=== PATIENT | male | born 1995 | race African-American/Black ===

== ENCOUNTER 2018-12-15 12:40 | Emergency (ER) | payer OTHER ==
[~2018-12-15] VITALS: Ht 175.3 cm; Wt 71.7 kg
[~2018-12-15 12:40] MED LIST: KEPPRA 500 MG500 M1 PO; MUCINEX D TABL1 EAC1 PO; NAPROSYN500 MG PO; TESSALON PERLE100 MG PO
[2018-12-15] MEDS ORDERED: BUTALB-APAP-CA1 EACH PO (16:14)
[2018-12-15 16:38] VITALS: BP 134/92
--- NOTE | 2018-12-16 16:01 | EKG ---
[place] [address] [facility] [place] [address] ELECTROCARDIOGRAM REPORT Name: CALLUM TO Room #: [facility]#: [id number] ������������������ Admission: 12/15/18 ������������������ Attend Phys: Discharge: 12/15/18 ������������������ Date of : [birth year] Report #: [id number] ����������������������������������������������������������������� [id number] THIS REPORT FOR: //name// [facility] ED Test Date: 2018-12-15 Test Time: 12:53:47 Pat Name: CALLUM TO Department: Room: Gender: M Meat Loiner: [place] : 1995 Requested By: Petra Delgado Order Number: [id number] MD: Bryce Wu Measurements Intervals [place] Rate: 61 P: 36 [place]: 154 QRS: 122 QRSD: 83 T: 4 QT: 367 QTc: 370 Interpretive Statements Sinus rhythm Right axis deviation Borderline T wave abnormalities Borderline ST elevation, anterior leads No previous ECG available for comparison Electronically Signed On 12-16-2018 16:01:25 CDT by Bryce Wu [email or web address] ��������������������������������������������� <ELECTRONICALLY SIGNED> ���������������������������������������� By: Bryce Wu MD, [facility] ��������������������������������������������� 12/16/18 1601 1253 1253 Bryce Wu MD, FACC /EPI
== END 2018-12-15 16:21 | disposition home or self-care (01) ==
LOC: ER 12:40
DX: R51 Headache (principal); R05 Cough; R11.2 Nausea with vomiting, unspecified; R42 Dizziness and giddiness; F17.210 Nicotine dependence, cigarettes, uncomplicated

== ENCOUNTER 2020-06-25 14:58 | Inpatient (IN) | payer OTHER ==
[~2020-06-25] VITALS: Ht 170.2 cm; Wt 63.0 kg
--- NOTE | ~2020-06-25 | HC ---
[facility] [place] [address] CONSULTATION Name: CALLUM TO Room #: 202-P ADM IN M.R.#: [id number] Admission: 06/25/20 Attend Phys: Azam Allen MD Discharge: Date of : [birth year] Report #: [id number] THIS REPORT FOR: cc: FAM - No family physician/PCP FAM - No family physician/PCP Mehdi Yeung MD ~ DATE OF SERVICE: 06/25/2020 HISTORY OF PRESENT ILLNESS: This is a 25-year-old male patient who was evaluated by me for a seizure. This patient apparently has a seizure disorder. I cannot get any history from him because he is pretty much out. I talked to the Emergency Room physician. The patient's family is left, and I can talk to them, and I will try to get hold of her. The patient apparently has a known seizure disorder. He is on Depakote. He stopped taking Depakote about a month ago, and he came in with what look like pretty severe multiple seizures. They gave him a lot of Ativan, and subsequently, they gave him 1000 mg of Keppra. He has not had any further seizure. He was agitated first, but now he is pretty much out. REVIEW OF SYSTEMS: Unavailable in this patient except as I talked to the Emergency Room physician. There is some record of acute kidney injuries. This patient's electrolytes are significantly abnormal. He has a pretty significant lactic acidosis. He does have a high CPK. His white count is 24.8, and I suspect that is demargination because his temperature is normal. I talked to Emergency Room physician, they had recommended a spinal tap, but the family refused that and the patient is unable to participate in any discussion, so spinal tap was not done. He was put on some antibiotics until ID can see him and they will decide if they need to continue that or not. That is all the review of system I can get. PAST MEDICAL HISTORY: Positive for seizure and noncompliance with Keppra. FAMILY HISTORY: Unavailable. SOCIAL HISTORY: Unavailable. PHYSICAL EXAMINATION: Very limited. He is basically lying there. He is not responsive. His breathing looks intact. I cannot tell whether he can move both sides. He has no reflexes. He has no meningeal sign. Cardiac and respiratory examinations appear noncontributory. EEG was reviewed and that does not show any active seizure activity. IMPRESSION: Possible breakthrough seizures secondary to noncompliance. We will try to reach the family to get some more history. In the meantime, [place] [address] CONSULTATION Name: CALLUM TO Micaela Room #: 202-P [facility] IN M.R.#: [id number] Admission: 06/25/20 Attend Phys: Azam Allen MD Discharge: Date of : [birth year] Report #: [id number] Thank you very much for this referral, and please feel free to contact me if you have any questions. By: [id number] Mehdi Yeung MD /dale
--- NOTE | ~2020-06-25 | EEG ---
[facility] [place] [address] ELECTROENCEPHALOGRAM Name: CALLUM TO Room #: 202-P ADM IN M.R.#: [id number] Admission: 06/25/20 Attend Phys: Azam Allen MD Discharge: Date of : [birth year] Report #: [id number] THIS REPORT FOR: //name// DATE OF SERVICE: 06/25/2020 This patient is being evaluated for multiple seizures. EEG was done by placing the electrode by standard 10-20 system of electrode placement. Both referential and sequential montages were used for recording. Background activity in this patient's EEG is suppressed. It does go up to about 6-7 Hz, but lot of time it is very low voltage, somewhere around 15 microvolts. Photic stimulation is unremarkable. The EEG was monotonous and did not change much. No active epileptiform activity was noticed. IMPRESSION: This patient's EEG does not demonstrate any clear-cut epileptiform activity in spite of the patient's multiple seizures he had. EEG can be normal in a patient with a seizure disorder. By: 99 10 Mehdi Yeung MD /nt
[~2020-06-25 14:58] MED LIST changes: +BUTALB-APAP-CA1 EACH PO; +KEPPRA1000 MG PO
[2020-06-25 15:01] VITALS: BP 172/91
[2020-06-25 15:56] LABS: URINE BILIRUBIN NEGATIVE (Negative); URINE BLOOD 2+ (Negative); URINE CLARITY CLEAR; URINE COLOR YELLOW; URINE GLUCOSE-RANDOM* TRACE (Negative); URINE KETONES NEGATIVE (Negative); URINE LEUKOCYTES-REFLEX NEGATIVE (Negative); URINE NITRITE-REFLEX NEGATIVE (Negative); URINE PROTEIN (DIPSTICK) 1+ (Negative); URINE SPECIFIC GRAVITY >= 1.030 (1.005-1.035); URINE UROBILINOGEN 0.2 E.U./dl (0.2-1.0)
[2020-06-25 16:02] LABS: HEMATOCRIT 48.8 % (42.0-52.0); HEMOGLOBIN 14.8 gm/dL (14.0-18.0); MCH 26.6 pg (26.0-34.0); MCHC 30.3 g/dL (28.0-37.0); MCV 87.8 fL (80.0-100.0); PLATELET COUNT 376 thou/uL (150-400); RBC 5.55 mil/uL (4.50-6.00); RDW 15.7 % (10.5-14.5); WBC 24.8 thou/uL (4.0-11.0)
[2020-06-25 16:02] LABS: BACTERIA-REFLEX 1-9 Few /HPF (None Seen); CRYSTALS None Seen /LPF (None Seen); URINE RBC 0-2 Rare /HPF (0-2); URINE WBC-REFLEX None Seen /HPF (0-5)
[2020-06-25 16:05] LABS: ANION GAP 25 mmol/L (7-16); BUN 10 mg/dL (7-18); CALCIUM 10.5 mg/dL (8.5-10.1); CHLORIDE 109 mmol/L (98-107); CO2 15 mmol/L (21-32); CREATININE 1.8 mg/dL (0.7-1.3); GLUCOSE 235 mg/dL (74-106); POTASSIUM 3.3 mmol/L (3.5-5.1); SODIUM 149 mmol/L (136-145)
[2020-06-25 16:08] LABS: AMP/METHAMP Negative (Negative); BARBITURATES Negative (Negative); BENZODIAZEPINES Negative (Negative); COCAINE Negative (Negative); METHADONE Negative (Negative); OPIATES Negative (Negative); PCP Negative (Negative)
[2020-06-25 16:13] LABS: MAGNESIUM 3.2 mg/dL (1.8-2.4); TROPONIN-I <0.06 ng/mL (<0.06)
[2020-06-25 16:17] LABS: BE(vivo) -13.3 mmol/L (-2 to +3); HCO3 14.2 mmol/L (22.0-26.0); PCO2 38.2 mmHg (35.0-45.0); PO2 87.8 mmHg (80.0-100.0); pH 7.187 (7.360-7.450); sO2 94.6 % (92.0-98.0)
[2020-06-25 16:57] LABS: ABSOLUTE NEUTROPHILS 17.6 thou/uL (1.4-8.2); METAMYELOCYTES 1 %; PLATELET ESTIMATE NORMAL
[2020-06-25 20:02] VITALS: BP 163/97
[2020-06-25 20:10] LABS: BE(vivo) -8.6 mmol/L (-2 to +3); PCO2 26.7 mmHg (35.0-45.0); PO2 96.4 mmHg (80.0-100.0); pH 7.368 (7.360-7.450); sO2 97.3 % (92.0-98.0)
[2020-06-25 20:15] VITALS: BP 101/59
[2020-06-26 05:24] VITALS: BP 165/76
[2020-06-26 06:12] LABS: ABSOLUTE NEUTROPHILS 16.9 thou/uL (1.4-8.2); BASOPHILS 0.6 % (0.0-2.0); HEMATOCRIT 40.4 % (42.0-52.0); HEMOGLOBIN 13.1 gm/dL (14.0-18.0); LYMPHOCYTES 3.2 % (24.0-44.0); MCH 26.8 pg (26.0-34.0); MCHC 32.3 g/dL (28.0-37.0); POLYS 90.2 % (36.0-66.0); RBC 4.87 mil/uL (4.50-6.00); RDW 14.8 % (10.5-14.5); WBC 18.8 thou/uL (4.0-11.0)
[2020-06-26 06:14] LABS: MCV 82.8 fL (80.0-100.0); PLATELET COUNT 228 thou/uL (150-400)
[2020-06-26 06:37] LABS: ALBUMIN 4.1 g/dL (3.4-5.0); CALCIUM 8.8 mg/dL (8.5-10.1); MAGNESIUM 2.8 mg/dL (1.8-2.4); TOTAL BILIRUBIN 1.2 mg/dL (0.2-1.0); TOTAL PROTEIN 6.7 g/dL (6.4-8.2)
[2020-06-26 06:45] LABS: CREATININE 2.9 mg/dL (0.7-1.3)
[2020-06-26 06:47] LABS: POTASSIUM 5.4 mmol/L (3.5-5.1)
--- NOTE | 2020-06-26 07:00 | NUR ---
Patient refused AM blood gas. RT tried to encouge a assistant golf coach patient. Patient refused.
[2020-06-26 07:22] VITALS: BP 115/52
--- NOTE | 2020-06-26 07:26 | EKG ---
[address] [place] [address] ELECTROCARDIOGRAM REPORT Name: CALLUM TO Room #: 202-P ADM IN M.R.#: [id number] Admission: 06/25/20 Attend Phys: Azam Allen MD Discharge: Date of : [birth year] Report #: [id number] [facility] ED Test Date: 2020-06-25 Test Time: 15:49:29 Pat Name: CALLUM TO Department: Room: 202 Gender: M Web Marketing Analyst: GARETT : 1995 Requested By: Iván Wray Order Number: [id number] MD: Rhys Rodriguez Measurements Intervals [place] Rate: 126 P: 77 DC: 129 QRS: 152 QRSD: 84 T: 52 QT: 322 QTc: 467 Interpretive Statements Sinus tachycardia Consider right atrial enlargement Consider right ventricular hypertrophy J Point elev, probable normal early repol pattern Compared to ECG 12/15/2018 12:53:47 Sinus rhythm no longer present Right-axis deviation no longer present T-wave abnormality no longer present ST (T wave) deviation still present Electronically Signed On 06-26-2020 7:26:21 [employer]ISTING PILE [employer]IVING ENGINEER by Rhys Rodriguez [email or web address] <ELECTRONICALLY SIGNED> By: Rhys Rodriguez MD, FACC 06/26/20 0726 1549 1549 Rhys Rodriguez MD, [facility] /EPI
--- NOTE | 2020-06-26 07:26 | NUR ---
PATIENTS CARES WERE ASSUMED AFTER TRANSFER FROM THE ER. PATIENT WAS ASSESSED AND ORDERS WERE CARRIED OUT. PATIENT WAS UNABLE TO FOLLOW DIRECTION THIS SHIFT. HE WAS NOT ABLE TO FIX OR FOLLOW EITHER. THE SHIFT WAS UNEVENTFUL. PATIENT DID REMAIN ASLEEP THE ENTIRE TIME. THE BED IS PADDED WITHBLANKETS DUE TO PATIENT SIEZURES. THE BED IS IN A LOW AND LOCKED POSISION. THE PATIENT DID GET COMBATIVE WITH RESPIRATORY WHEN ATTEMPTIING TO OBTAIN HIS BLOOD GASES.
[2020-06-26 11:47] VITALS: BP 98/50
--- NOTE | 2020-06-26 13:24 | NUR ---
ASSESSMENT COMPLETED IN AM. PT ADMISSION COMPLETED. PT WOULD ANSWER INTERMITTENTLY TO CERTAIN QUESTIONS. PT VSS. NEURO INTACT. SEEN BY NEURO AND NEPHROLOGY THIS AM. ORDERS NOTED. SEIZURE PRECAUTION ENFORCED. PT TAUGHT IMPORTANCE OF TAKING SEIZURE MEDICATION. SEEN BY DR BOSS. PT WANTED TO BE DISCHARGED THIS AM. DR BOSS NOTIFIED. PT INFORMED HE NEEDED MORE TREATMENT. PT CALLED MOTHER, AND DEMANDED TO LEAVE HOSPITAL. UKRAINIAN FOLK ARTS INSTRUCTOR, TESSA SUP, AND DR BOSS NOTIFIED. AMA FORM SIGNED AND WITNESSED. PT LEFT FACILITY ACCOMPANIED BY THE MOTHER.
== END 2020-06-26 13:32 | disposition left against medical advice (07) | DRG 100 ==
LOC: ER 14:58 → EROBS 18:12 → 2N 20:11
PROVIDERS: Emergency Medicine; ADMIT Internal Medicine; ATTEND Internal Medicine
DX: G40.401 Other generalized epilepsy and epileptic syndromes, not intractable, with status epilepticus (principal); N17.0 Acute kidney failure with tubular necrosis; S09.90XA Unspecified injury of head, initial encounter; X58.XXXA Exposure to other specified factors, initial encounter; Y93.89 Activity, other specified; Y92.89 Other specified places as the place of occurrence of the external cause; Y99.8 Other external cause status; Z79.899 Other long term (current) drug therapy; Z53.29 Procedure and treatment not carried out because of patient's decision for other reasons
CPT/HCPCS: 10081

== ENCOUNTER 2020-07-17 23:23 | Emergency (ER) | payer OTHER ==
[~2020-07-17] VITALS: Ht 170.2 cm; Wt 71.2 kg
[~2020-07-17 23:23] MED LIST changes: +AZITHROMYCIN 2250 MG PO; +IBUPROFEN 800800 MG PO; +KEPPRA XR500 MG PO; +SUPRAX400 M1 PO
[2020-07-17] MEDS ORDERED: LEVETIRACETAM1000 MG PO (23:36)
[2020-07-18] MEDS ORDERED: TINACTIN150 GM TRANSDERM (01:54)
[2020-07-18 02:19] VITALS: BP 102/47
== END 2020-07-18 02:24 | disposition home or self-care (01) ==
LOC: ER 23:23
DX: M25.512 Pain in left shoulder (principal); B35.6 Tinea cruris; R36.9 Urethral discharge, unspecified; Z20.2 Contact with and (suspected) exposure to infections with a predominantly sexual mode of transmission; F17.210 Nicotine dependence, cigarettes, uncomplicated; Z79.899 Other long term (current) drug therapy; W19.XXXA Unspecified fall, initial encounter; Y93.89 Activity, other specified; Y92.89 Other specified places as the place of occurrence of the external cause; Y99.8 Other external cause status